=== PATIENT | female | born 1985 | race Two or more races ===

== ENCOUNTER 2016-12-30 11:21 | Inpatient (IN) | payer OTHER ==
[~2016-12-30] VITALS: Ht 157.5 cm; Wt 80.2 kg
[2016-12-30] VITALS (10 sets, daily range): BP systolic 111–136; BP diastolic 69–82
[2016-12-30] MEDS ORDERED: PRENATAL TABLE1 EAC3 PO (12:28)
[2016-12-30] MEDS ORDERED: DIABETA2.5 MG PO (12:29)
[2016-12-30 13:43] LABS: EOSINOPHIL (%) 0.4 % (0-5); HEMATOCRIT 35.7 % (36.0-46.0); IMMATURE GRANULOCYTE (%) 2.3 % (0.0-0.7); IMMATURE GRANULOCYTE COUNT 0.2 K/uL; INSTRUMENT ABS NEUTROPHIL CT 6.6 K/uL; LYMPHOCYTE COUNT 2.7 K/uL (1.0-2.8); MCHC 33.9 G/DL (30.0-36.0); MCV 91.5 FL (83-99); MEAN PLAT.VOLUME 12.4 uM^3 (9.5-12.4); MONOCYTE (%) 8.1 % (3-12); MONOCYTE COUNT 0.9 K/uL (0-0.8); NEUTROPHIL (%) 62.8 % (45-76); NEUTROPHIL COUNT 6.6 K/uL (1.8-6.4); PLATELET COUNT 207 K/uL (156-360); RBC DIS.WIDTH-SD 46.8 % (39-53); WHITE BLOOD COUNT 10.5 K/uL (4.1-10.2)
[2016-12-31] VITALS (19 sets, daily range): BP systolic 106–148; BP diastolic 60–91
[2016-12-31 07:30] LABS: POINT-OF-CARE METER ID UU13113801
[2016-12-31 11:51] LABS: POINT-OF-CARE METER ID UU13113801
[2017-01-01 00:03] VITALS: BP 112/65
[2017-01-01 06:48] LABS: EOSINOPHIL (%) 0.1 % (0-5); HEMATOCRIT 33.6 % (36.0-46.0); IMMATURE GRANULOCYTE (%) 0.8 % (0.0-0.7); IMMATURE GRANULOCYTE COUNT 0.1 K/uL; INSTRUMENT ABS NEUTROPHIL CT 10.6 K/uL; LYMPHOCYTE COUNT 2.5 K/uL (1.0-2.8); MCH 30.9 PG (29.0-34.0); MCHC 33.6 G/DL (30.0-36.0); MCV 91.8 FL (83-99); MEAN PLAT.VOLUME 12.5 uM^3 (9.5-12.4); MONOCYTE (%) 8.2 % (3-12); MONOCYTE COUNT 1.2 K/uL (0-0.8); NEUTROPHIL (%) 73.3 % (45-76); NEUTROPHIL COUNT 10.6 K/uL (1.8-6.4); PLATELET COUNT 188 K/uL (156-360); RBC DIS.WIDTH-CV 13.8 % (11.8-14.6); RBC DIS.WIDTH-SD 46.5 % (39-53); RED BLOOD COUNT 3.66 M/uL (3.80-5.20); WHITE BLOOD COUNT 14.5 K/uL (4.1-10.2)
[2017-01-01 07:10] VITALS: BP 117/77
[2017-01-01 07:45] LABS: POINT-OF-CARE METER ID UU13113692
[2017-01-01 07:45] LABS: POINT-OF-CARE METER ID UU13113692
[2017-01-01 15:50] VITALS: BP 122/68
[2017-01-02] MEDS ORDERED: IBUPROFEN800 MG PO (11:43)
== END 2017-01-02 18:30 | disposition home or self-care (01) | DRG 775 ==
LOC: LDRP-OP 11:21 → 2WEST 11:22 → LDRP-OP 02-04 14:51
PROVIDERS: Advanced Practice Midwife; Obstetrics & Gynecology
DX: O70.0 First degree perineal laceration during delivery (principal); O24.425 Gestational diabetes mellitus in childbirth, controlled by oral hypoglycemic drugs; O99.824 Streptococcus B carrier state complicating childbirth; O14.94 Unspecified pre-eclampsia, complicating childbirth; O41.03X0 Oligohydramnios, third trimester, not applicable or unspecified; O69.81X0 Labor and delivery complicated by cord around neck, without compression, not applicable or unspecified; O99.214 Obesity complicating childbirth; E66.3 Overweight; Z3A.39 39 weeks gestation of pregnancy; Z37.0 Single live birth; Z68.25 Body mass index [BMI] 25.0-25.9, adult
CPT/HCPCS: 82948; 85025; G0378; J0595; J2540; J7120

== ENCOUNTER 2017-04-06 05:31 | Day surgery (SDC) | payer OTHER ==
[~2017-04-06] VITALS: Ht 157.5 cm; Wt 72.1 kg
[~2017-04-06 05:31] MED LIST: DIABETA2.5 MG PO; IBUPROFEN800 MG PO; PRENATAL TABLE1 EAC3 PO
[2017-04-06 06:22] VITALS: BP 127/69
[2017-04-06 09:09] VITALS: BP 108/68
[2017-04-06 10:00] VITALS: BP 109/66
== END 2017-04-06 10:21 | disposition home or self-care (01) ==
LOC: SDC 05:31
PROC: 0UL78DZ Occlusion of Bilateral Fallopian Tubes with Intraluminal Device, Via Natural or Artificial Opening Endoscopic (ICD-10-PCS; principal; 2017-04-06)
DX: Z30.2 Encounter for sterilization (principal); D64.9 Anemia, unspecified
CPT/HCPCS: J0690; J1885; J2250; J2405; J3010